=== PATIENT | male | born 1970 | race Hispanic/Latino ===

== ENCOUNTER 2021-11-28 14:42 | Emergency (ER) | payer BC, OTHER ==
[~2021-11-28] VITALS: Ht 190.5 cm; Wt 113.4 kg
[2021-11-28 14:43] VITALS: BP 131/77
[2021-11-28] MEDS ORDERED: BENZ-39 PO (16:38)
[2021-11-28] MEDS ORDERED: BENZONATATE 100 MG CAPSULE PO SCH (17:00)
== END 2021-11-28 16:50 | disposition home or self-care (01) ==
LOC: EDH 14:42
DX: J06.9 Acute upper respiratory infection, unspecified (principal); I10 Essential (primary) hypertension; Z20.822 Contact with and (suspected) exposure to COVID-19
CPT/HCPCS: 87635; 87804 ×2; 99283; C9803

== ENCOUNTER → 2022-01-06 | Outpatient (CLI) | payer OTHER ==
[~2022-01-06] MED LIST: BENZ-39 PO; DIATR MEGLU/DIATRIZOATE SODIUM 30 ML BOTTLE ONE
== END | disposition home or self-care (01) ==
LOC: RAH 08:30
PROVIDERS: ATTEND Surgery
DX: K44.9 Diaphragmatic hernia without obstruction or gangrene (principal); K21.9 Gastro-esophageal reflux disease without esophagitis
CPT/HCPCS: 74240; Q9963

== ENCOUNTER 2022-02-03 07:30 | Inpatient (IN) | payer OTHER ==
[2022-02-01 14:12] LABS: BASOPHILS % (AUTO) 0.6 % (0.0-5.0); EOSINOPHILS % (AUTO) 1.5 % (0.0-8.0); HEMATOCRIT 50.7 % (42-54); LYMPHOCYTES % (AUTO) 28.9 % (21.0-51.0); MEAN CORPUSCULAR HEMOGLOBIN 26.3 pg (27.0-33.0); MEAN CORPUSCULAR HGB CONC 33.1 g/dL (32.0-36.0); MEAN CORPUSCULAR VOLUME 79.3 fL (79-99); MONOCYTES % (AUTO) 7.3 % (3.0-13.0); NEUTROPHILS % (AUTO) 61.4 % (40.0-77.0); PLATELET COUNT (AUTO) 339 K/uL (130-400); RED BLOOD CELL COUNT(AUTO) 6.39 MIL/uL (4.50-6.20); RED CELL DISTRIBUTION WIDTH 13.4 % (11.0-15.5)
[2022-02-01 14:21] LABS: CREATININE 0.9 mg/dL (0.5-1.5); POTASSIUM 4.5 mmol/L (3.5-5.1)
[2022-02-02 10:48] VITALS: BP 148/89
[2022-02-03] VITALS (17 sets, daily range): BP systolic 123–145; BP diastolic 66–81
[~2022-02-03] VITALS: Ht 190.5 cm; Wt 114.0 kg
[~2022-02-03 07:30] MED LIST changes: +AMLO-257 PO; -BENZ-39 PO; -DIATR MEGLU/DIATRIZOATE SODIUM 30 ML BOTTLE ONE; +HYDR25TA PO; +LOSA100T58 PO
[2022-02-03] MEDS ORDERED: LACTATED RINGERS 1000ML 1,000 ML IV ONE (08:43)
[2022-02-03] MEDS: CEFAZOLIN SODIUM 1 GM VIAL ONE ×2 (09:34→14:30)
[2022-02-03] MEDS ORDERED: DEXAMETHASONE SOD PHOSPHATE 10MG/ML 1ML VIAL ONE (14:12)
[2022-02-03] MEDS ORDERED: SUCCINYLCHOLINE CHLORIDE 20 MG/ML 10 ML VIAL ONE (14:12)
[2022-02-03] MEDS ORDERED: GLYCOPYRROLATE 1 MG/5 ML SYRINGE ONE (14:12)
[2022-02-03] MEDS ORDERED: PROPOFOL 10 MG/ML 20ML VIAL IV ONE ×2 (14:12→16:53)
[2022-02-03] MEDS ORDERED: LIDOCAINE PF 100MG/5ML (2%) SYRINGE 5ML ONE ×2 (14:12→14:14)
[2022-02-03] MEDS ORDERED: ONDANSETRON 4MG INJ ONE (14:13)
[2022-02-03] MEDS ORDERED: NEOSTIGMINE 5MG/5ML SYR IV ONE (14:13)
[2022-02-03] MEDS ORDERED: MIDAZOLAM HCL 1 MG/ML 2ML VIAL ONE (14:13)
[2022-02-03] MEDS ORDERED: FENTANYL CITRATE PF 50 MCG/1 ML 2ML VIAL ONE ×3 (14:13→17:01)
[2022-02-03] MEDS ORDERED: ROCURONIUM 10MG/1ML SYR 10 MG/ML ML ONE ×3 (14:13→16:07)
[2022-02-03] MEDS ORDERED: BUPIVACAINE/PF 0.5% 30ML VIAL ONE (14:54)
[2022-02-03] MEDS ORDERED: METOCLOPRAMIDE 10 MG/2 ML VIAL ONE (16:02)
[2022-02-03] MEDS ORDERED: KETOROLAC 30MG VIAL (30MG/ML) ONE (16:51)
[2022-02-03] MEDS ORDERED: MEPERIDINE-PF 25 MG/ML SYG ONE ×2 (17:20→17:33)
[2022-02-03] MEDS: LACTATED RINGERS 1000ML 1,000 ML IV SCH (17:30)
[2022-02-03] MEDS ORDERED: ONDANSETRON 4MG INJ IVP PRN (17:30)
[2022-02-03] MEDS ORDERED: HYDROCODONE/ACETAMINOPHEN 5/325 MG TAB PO PRN (17:30)
[2022-02-03] MEDS ORDERED: ACETAMINOPHEN 325 MG TAB PO PRN (17:30)
[2022-02-03] MEDS: MORPHINE 4 MG SYG IV PRN ×2 (18:37→22:11)
[2022-02-03] MEDS: FAMOTIDINE 20MG VIAL IV SCH (22:12)
[2022-02-04] VITALS: BP 133/77
[2022-02-04 04:00] VITALS: BP 113/65
[2022-02-04 07:00] VITALS: BP 115/68
[2022-02-04] MEDS ORDERED: ENOXAPARIN SODIUM 40 MG/0.4 ML SYRINGE SQ SCH (09:00)
[2022-02-04] MEDS ORDERED: AMLODIPINE 5 MG TAB PO SCH (09:00)
[2022-02-04] MEDS ORDERED: HYDROCHLOROTHIAZIDE 25 MG TABLET PO SCH (09:00)
[2022-02-04] MEDS: LACTATED RINGERS 1000ML 1,000 ML IV SCH (09:14)
[2022-02-04] MEDS: FAMOTIDINE 20MG VIAL IV SCH (09:14)
[2022-02-04 11:00] VITALS: BP 130/76
[2022-02-04] MEDS ORDERED: LOSARTAN 100 MG TABLET PO SCH (21:00)
== END 2022-02-04 16:10 | disposition home or self-care (01) | DRG 328 ==
LOC: DAH 07:30 → DAHIP 07:31 → DAH 07:31 → OBSVTOIN 07:31 → INTOOBSV 07:31 → 4BH 19:30 → 4CH 19:38
PROVIDERS: ADMIT Surgery; ATTEND Surgery
PROC: 0DJ08ZZ Inspection of Upper Intestinal Tract, Via Natural or Artificial Opening Endoscopic (ICD-10-PCS; 2022-02-03)
PROC: 0DV44ZZ Restriction of Esophagogastric Junction, Percutaneous Endoscopic Approach (ICD-10-PCS; principal; 2022-02-03 14:19)
PROC: 0BQT4ZZ Repair Diaphragm, Percutaneous Endoscopic Approach (ICD-10-PCS; 2022-02-03 14:19)
DX: K22.70 Barrett's esophagus without dysplasia (principal); K44.9 Diaphragmatic hernia without obstruction or gangrene; K21.9 Gastro-esophageal reflux disease without esophagitis
CPT/HCPCS: 36415; 80048; 85025; 86850; 86900; 86901; 87635; 93005; A4344; C9803; G0378; J0330; J0690; J1100; J1650; J1885; J2001; J2175; J2250; J2270; J2405; J2704; J2710; J2765; J3010; J3490; J7030; J7120

== ENCOUNTER → 2025-05-14 | Outpatient (CLI) | payer OTHER ==
[~2025-05-14] MED LIST changes: +IOHEXOL 350 MG/ML 100ML INFUS..BTL IV ONE; -LOSA100T58 PO; +LOSA100T59 PO
--- NOTE | 2025-05-15 07:48 | CARDIOLOGY ---
RAD REPORT: [facility] CT ANGIO RADIOLOGY REPORT: CORONARY CT ANGIOGRAPHY DATE: May 15, 2025 QUALITY: Excellent CLINICAL HISTORY AND INDICATION: [ chest pain ] TECHNIQUE: After obtaining a preliminary sql data architect image, contrast imaging performed on an [employer] [id number] scanner. A dedicated, limited window, coronary imaging protocol was used, with single breath-hold, retrospective ECG gating, and automated arrhythmia rejection. 100 cc of low osmolar contrast agent: Omnipaque 350 was delivered via a 18-gauge IV catheter in the right antecubital fossa, using a power injector and followed by 60 cc of normal saline bolus as a chaser. Collimated images were reformatted at 0.5 mm intervals, and sent to an offline independent workstation for interpretation, using 3D anatomic reconstructions: Curved multiplanar reconstructions, maximum intensity projections, and multiplanar imaging. 5 mg IV metoprolol was administered prior to scanning. 0.8 mg SL nitroglycerin was given. CORONARY ARTERY DESCRIPTIONS: The coronary arteries arise in normal position. Left main coronary artery: Normal caliber vessel that bifurcates into the LAD and LCx. No stenosis. Left anterior descending coronary artery: Normal caliber vessel and gives rise to diagonal and septal branches. There is mixed calcified and noncalcified plaque in the ostial/proximal with 40-50% stenosis. There is mixed calcified and noncalcified plaque in the mid LAD with 50-60% stenosis. Left circumflex coronary artery: Normal caliber, nondominant and gives rise to four OM branches. There is calcified plaque in the mid OM3 with 20-30% stenosis. Right coronary artery: Large, dominant vessel giving rise to the PL and PDA branches. There is mixed calcified and noncalcified plaque in the proximal RCA with 50-69% stenosis. There is mixed calcified and noncalcified plaque in the distal RCA with 20-30% stenosis. CAD-RADs: 3, moderate stenosis. Recommend CT-FFR for LAD stenosis. Thoracic Aorta: Normal diameter. Joanna Rodriguez MD Cardiovascular Disease [facility] JOANNA RODRIGUEZ MD May 15, 2025 07:48
== END | disposition home or self-care (01) ==
LOC: RAH 08:09
PROVIDERS: ATTEND Internal Medicine Cardiovascular Disease
DX: I25.10 Atherosclerotic heart disease of native coronary artery without angina pectoris (principal); R06.02 Shortness of breath
CPT/HCPCS: 75574; J3490; Q9967 ×2

== ENCOUNTER → 2025-05-17 | Outpatient (CLI) | payer OTHER ==
[~2025-05-17] MED LIST changes: -IOHEXOL 350 MG/ML 100ML INFUS..BTL IV ONE
--- NOTE | 2025-05-24 08:06 | CARDIOLOGY ---
RAD REPORT: [facility] CT ANGIO RADIOLOGY REPORT: CORONARY CT ANGIOGRAPHY DATE: May 15, 2025 QUALITY: Excellent CLINICAL HISTORY AND INDICATION: [ chest pain ] TECHNIQUE: After obtaining a preliminary sweatband flanger image, contrast imaging performed on an [employer]illon [id number] scanner. A dedicated, limited window, coronary imaging protocol was used, with single breath-hold, retrospective ECG gating, and automated arrhythmia rejection. 100 cc of low osmolar contrast agent: Omnipaque 350 was delivered via a 18-gauge IV catheter in the right antecubital fossa, using a power injector and followed by 60 cc of normal saline bolus as a chaser. Collimated images were reformatted at 0.5 mm intervals, and sent to an offline independent workstation for interpretation, using 3D anatomic reconstructions: Curved multiplanar reconstructions, maximum intensity projections, and multiplanar imaging. 5 mg IV metoprolol was administered prior to scanning. 0.8 mg SL nitroglycerin was given. CORONARY ARTERY DESCRIPTIONS: The coronary arteries arise in normal position. Left main coronary artery: Normal caliber vessel that bifurcates into the LAD and LCx. No stenosis. Left anterior descending coronary artery: Normal caliber vessel and gives rise to diagonal and septal branches. There is mixed calcified and noncalcified plaque in the ostial/proximal with 40-50% stenosis. There is mixed calcified and noncalcified plaque in the mid LAD with 50-60% stenosis. Left circumflex coronary artery: Normal caliber, nondominant and gives rise to four OM branches. There is calcified plaque in the mid OM3 with 20-30% stenosis. Right coronary artery: Large, dominant vessel giving rise to the PL and PDA branches. There is mixed calcified and noncalcified plaque in the proximal RCA with 50-69% stenosis. There is mixed calcified and noncalcified plaque in the distal RCA with 20-30% stenosis. CAD-RADs: 3, moderate stenosis. CT-FFR negative. Thoracic Aorta: Normal diameter. Joanna Rodriguez MD Cardiovascular Disease [facility] JOANNA RODRIGUEZ MD May 24, 2025 08:06
== END | disposition home or self-care (01) ==
LOC: RAH 08:00
PROVIDERS: ATTEND Internal Medicine Cardiovascular Disease
DX: I25.10 Atherosclerotic heart disease of native coronary artery without angina pectoris (principal)
CPT/HCPCS: 75580